=== PATIENT | male | born 1960 | race Caucasian/White ===

== ENCOUNTER → 2023-08-25 | Day surgery (SDC) | payer OTHER ==
[~2023-08-25] VITALS: Ht 172.7 cm; Wt 141.2 kg
[~2023-08-25] MED LIST: ALEV220T22 PO; ASPI81TA26 PO; ATOR1TAB21 PO; LIDOCAINE 2% 100MG/5ML SDV (FOR ANES.) As Ordered ONE; LISI10TA22 PO; METF500T13 PO; NS 1,000 ML IV ONE; OMEP1CAP73 PO; TORS5TAB2 PO; TOUJ300I2 SC; propofoL 200 MG/20 ML VIAL As Ordered ONE
[2023-08-25 13:34] VITALS: BP 151/86; TEMP 97.4; O2SAT 96
== END | disposition home or self-care (01) ==
LOC: M OPP 11:00
PROVIDERS: ATTEND Internal Medicine Gastroenterology
DX: K29.70 Gastritis, unspecified, without bleeding (principal); R10.13 Epigastric pain; I50.9 Heart failure, unspecified; E11.9 Type 2 diabetes mellitus without complications; G47.30 Sleep apnea, unspecified; Z99.89 Dependence on other enabling machines and devices; Z79.02 Long term (current) use of antithrombotics/antiplatelets; Z79.1 Long term (current) use of non-steroidal anti-inflammatories (NSAID); Z79.4 Long term (current) use of insulin; Z79.82 Long term (current) use of aspirin; Z79.899 Other long term (current) drug therapy

== ENCOUNTER 2024-07-26 06:01 | Day surgery (SDC) | payer OTHER ==
[~2024-07-26] VITALS: Ht 172.7 cm; Wt 139.8 kg
[~2024-07-26 06:01] MED LIST changes: -LIDOCAINE 2% 100MG/5ML SDV (FOR ANES.) As Ordered ONE; -NS 1,000 ML IV ONE; +SEMA0.257 SQ; -propofoL 200 MG/20 ML VIAL As Ordered ONE
[2024-07-26] MEDS ORDERED: LR 1,000 ML IV SCH ×2 (06:30→08:40)
[2024-07-26] MEDS ORDERED: LIDOCAINE 2% 100MG/5ML SDV (FOR ANES.) As Ordered ONE (06:43)
[2024-07-26] MEDS ORDERED: propofoL 200 MG/20 ML VIAL As Ordered ONE (06:43)
[2024-07-26] MEDS ORDERED: fentaNYL 100 MCG/2 ML INJECTION As Ordered ONE (06:43)
[2024-07-26] MEDS ORDERED: MIDAZOLAM INJ 2MG/2ML VIAL As Ordered ONE (06:43)
[2024-07-26] MEDS ORDERED: ACETAMINOPHEN 1000MG 100ML IV BAG As Ordered ONE (06:44)
[2024-07-26] MEDS: ceFAZolin SOD 2 GM in IV 1 EA IV ONE (07:45)
[2024-07-26] MEDS: ceFAZolin SOD 1 GM in D5W MINI-BAG PLUS 50 ML IV ONE (07:45)
[2024-07-26] MEDS: BACITRACIN OINTMENT 30GM TUBE As Ordered ONE (08:28)
[2024-07-26] MEDS ORDERED: fentaNYL 100 MCG/2 ML INJECTION IV PRN (08:40)
[2024-07-26] MEDS ORDERED: ONDANSETRON 4MG 2ML VIAL IV PRN (08:40)
[2024-07-26] MEDS: oxyCODONE 5MG TAB PO PRN (08:54)
[2024-07-26] MEDS ORDERED: CEPH500C PO (09:07)
[2024-07-26] MEDS ORDERED: OXYC1TAB23 PO (09:07)
[2024-07-26] MEDS: HYDROMORPHONE HCL 0.5 MG/ 0.5 ML SYRINGE IV PRN (09:12)
[2024-07-26 10:30] VITALS: BP 172/96; TEMP 97.8; O2SAT 97
== END 2024-07-26 11:00 | disposition home or self-care (01) ==
LOC: M SDC 06:01
PROVIDERS: ATTEND Urology
DX: N50.89 Other specified disorders of the male genital organs (principal); N50.812 Left testicular pain; E11.9 Type 2 diabetes mellitus without complications; I11.0 Hypertensive heart disease with heart failure; I50.9 Heart failure, unspecified; E78.00 Pure hypercholesterolemia, unspecified; K76.0 Fatty (change of) liver, not elsewhere classified; G47.30 Sleep apnea, unspecified; L40.9 Psoriasis, unspecified; Z79.899 Other long term (current) drug therapy; Z79.85 Long-term (current) use of injectable non-insulin antidiabetic drugs; Z79.4 Long term (current) use of insulin; Z79.84 Long term (current) use of oral hypoglycemic drugs; Z87.891 Personal history of nicotine dependence
CPT/HCPCS: 54860; 88304; J0131; J0665; J0690; J1170; J2250; J3010